=== PATIENT | male | born 1955 | race Caucasian/White ===

== ENCOUNTER 2020-02-07 13:04 | Emergency (ER) | payer OTHER, SELFPAY ==
--- NOTE | 2020-02-07 13:09 | DI.RAD.S_ITS ---
PROCEDURE: XR CHEST 1V INDICATIONS: chest tightness TECHNIQUE: One view of the chest was acquired. COMPARISON: None. FINDINGS: Surgical changes and devices: None. Lungs and pleura: Lungs are clear. No pleural effusions or pneumothorax. Mediastinum: Mediastinal contours appear normal. Heart size is normal. Bones and chest wall: No suspicious bony lesions. Overlying soft tissues appear unremarkable. IMPRESSION: No acute disease Dictated by: Cooper Cristobal M.D. on 02/07/2020 at 13:51 Approved by: Cooper Cristobal M.D. on 02/07/2020 at 14:09
--- NOTE | 2020-02-07 13:20 | ED_ITS ---
HPI - Chest Pain <VAIBHAV Odonnell - Last Filed: 02/08/20 02:33> General Chief Complaint: Chest Pain Stated Complaint: Sent by Doctor, having tightness in his chest Time Seen by Provider: 02/07/20 13:05 Source: patient Mode of arrival: Ambulatory Limitations: no limitations History of Present Illness HPI narrative: This is a 64-year-old male, nonsmoker, to ED with constant mid chest tightness which started at 4:00 p.m. yesterday without associated symptoms. Patient denies dyspnea, short of breath, cough, fever, nausea or vomiting, dizziness. Patient is not currently on anticoagulants or takes aspirin. Patient denies previous similar history with chest tightness. Patient has history of hypertension and takes lisinopril 20 mg and hyperlipidemia and takes Atorvastatin daily. Patient is not familiar ever had echocardiogram or stress test in the past. He denies history of GERD or a significant family history of cardiac disease. Patient states he does carry heavy weight at work. Patient contacted his primary care physician Dr. Swan and was referred to ED for an evaluation. Related Data Allergies Allergy/AdvReac Type Severity Reaction Status Date / Time No Known Drug Allergies Allergy Verified 02/07/20 13:24 Review of Systems <VAIBHAV Odonnell - Last Filed: 02/08/20 02:33> Review of Systems Narrative: General: Denies fever, chills, fatigue, malaise, sweats. HEENT: Denies sinus pain, ear pain, sore throat, difficulty swallowing, dizziness. Respiratory: Denies dyspnea, cough, wheezing, hemoptysis, sputum. Cardiovascular: See HPI Gastrointestinal: Denies nausea, vomiting, abdominal pain, diarrhea, constipation, melena. : Denies dysuria, frequency, incontinence, hematuria, urinary retention. Musculoskeletal: Denies weakness, joint pain or bony pain. Skin: Denies rash, skin lesions, or other. Neurologic: Denies weakness, headache, numbness, change in speech, confusion, seizures, incoordination. Psychiatric: No concerning psychosocial issues. 12-point review of systems is negative except for those stated above. Patient History <VAIBHAV Odonnell - Last Filed: 02/08/20 02:33> Medical History (Updated 02/07/20 @ 16:03 by VAIBHAV Odonnell) Hyperlipidemia (Acute) Hypertension (Acute) Surgical History (Updated 02/07/20 @ 13:24 by VAIBHAV Odonnell) H/O inguinal hernia repair (Acute) Social History Smoking Status: Never smoker Smoking Status: Never smoker alcohol intake frequency: 0-2 drinks per day Substance Use Type: does not use Exam <VAIBHAV Odonnell - Last Filed: 02/08/20 02:33> Narrative Exam Narrative: GEN: Alert, oriented x 3, well appearing and nourished, and in no acute distress. Head: Normal cephalic, atraumatic. No scalp or temporal tenderness, palpable mass or rash. EYES: Pupils are equal, round, and reactive to light and accommodation. Extraocular muscles are intact bilaterally. There is no subconjunctival hemorrhage, exudate and sclera non-icteric. ENT: Bilateral auditory canals and tympanic membranes clear. Hearing grossly intact. Nose without bleeding, purulent discharge or deviation. Facial sinuses nontender to palpate. Mucous membrane moist, no mucosal lesion. Throat without erythema, tonsillar hypertrophy or exudate. Uvula in midline, airway patent. Neck: Trachea in midline. No JVD, non-tender without lymphadenopathy. No masses or thyroid megaly. Supple, non-tender and no meningeal signs. CARDIAC: Normal regular rate and rhythm without murmurs, gallops, or rubs. Mild chest wall tenderness to palpate. No peripheral edema, cyanosis or pallor. Capillary refill is less than 2 seconds. RESPIRATORY: Lungs are clear to auscultate bilaterally. No cough, wheezes, rales, or rhonchi. No stridor, respiratory distress, increase work of breathing, or accessary muscle used. ABD: Abdomen soft, nontender and non-distended. No guarding or rebound tenderness to palpate. Bowel sounds are normal in all 4 quadrants. There is no palpable masses or organomegaly. EXT: Full painless ROM of all extremities with no loss of sensation, strength, effusion or edema. SKIN: Warm, dry, normal color for patient. No erythema, lesions or rash over visible areas. BACK: Nontender without deformity or crepitance. No flank tenderness. NEUROLOGICAL: Alert and oriented to place, time and person. Sensation and motor function intact bilaterally. No facial droops, dysphasia. PSYCHIATRIC: Good judgement and reason, without hallucinations, abnormal affect or abnormal behaviors during the examination. Initial Vital Signs Initial Vital Signs: Vital Signs Temperature 97.7 F 02/07/20 13:24 Pulse Rate 60 02/07/20 13:24 Respiratory Rate 14 02/07/20 13:24 Blood Pressure 196/77 H 02/07/20 13:24 Pulse Oximetry 97 02/07/20 13:24 <Jolly Rodríguez MD - Last Filed: 02/13/20 21:05> Initial Vital Signs Initial Vital Signs: Vital Signs Temperature 97.7 F 02/07/20 13:24 Pulse Rate 60 02/07/20 13:24 Respiratory Rate 14 02/07/20 13:24 Blood Pressure 196/77 H 02/07/20 13:24 Pulse Oximetry 97 02/07/20 13:24 Scores <VAIBHAV Odonnell - Last Filed: 02/08/20 02:33> GCS Lockwood coma scale eye opening: Spontaneous Lockwood coma scale verbal response: Orientated Berna coma scale motor response: Obey commands Berna coma scale total score: 15 HEART Score Heart Score history: Slightly Suspicious Heart Score EKG: Normal Heart Score Age: 45-64 years old Heart Score risk factors: 1-2 risk factors Heart Score troponin: < or = to normal limit Heart Score Total: 2 Course <VAIBHAV Odonnell - Last Filed: 02/08/20 02:33> Orders Ordered: Discontinued Medications Al Hydrox/Mg Hydrox/Simethicone 20 ml/ Lidocaine HCl 15 ml 0 ml PO NOW ONE Stop: 02/07/20 15:50 Last Admin: 02/07/20 15:58 Dose: 35 ml Documented by: AMARILYS Ketorolac Tromethamine (Toradol) 15 mg IV NOW ONE Stop: 02/07/20 14:07 Last Admin: 02/07/20 15:06 Dose: 15 mg Documented by: AMARILYS Vital Signs Vital signs: Vital Signs - 8 hr 02/07/20 13:24 02/07/20 13:57 Temperature 97.7 F Pulse Rate 60 60 Respiratory Rate 14 18 Blood Pressure 196/77 H Blood Pressure [Right Arm] 146/82 H Pulse Oximetry 97 98 <Jolly Rodríguez MD - Last Filed: 02/13/20 21:05> Orders Ordered: Discontinued Medications Al Hydrox/Mg Hydrox/Simethicone 20 ml/ Lidocaine HCl 15 ml 0 ml PO NOW ONE Stop: 02/07/20 15:50 Last Admin: 02/07/20 15:58 Dose: 35 ml Documented by: AMARILYS Ketorolac Tromethamine (Toradol) 15 mg IV NOW ONE Stop: 02/07/20 14:07 Last Admin: 02/07/20 15:06 Dose: 15 mg Documented by: AMARILYS Vital Signs Vital signs: Vital Signs - 8 hr 02/07/20 13:24 02/07/20 13:57 Temperature 97.7 F Pulse Rate 60 60 Respiratory Rate 14 18 Blood Pressure 196/77 H Blood Pressure [Right Arm] 146/82 H Pulse Oximetry 97 98 MDM - Chest Pain <Wing VAIBHAV Dodd - Last Filed: 02/08/20 02:33> Differential Diagnosis Differential diagnosis: Likely atypical chest pain, costochondritis and other (GERD, pneumonia) Medical Records Data Attestation: I reviewed the patient's medical records. Lab Data Attestation: I reviewed the patient's lab results. Result diagrams: 02/07/20 13:15 02/07/20 13:15 Labs: Lab Results 02/07/20 02/07/20 02/07/20 Range/Units 13:15 13:15 13:15 WBC 5.0 (4.5-11.0) X10^3/uL RBC 4.83 (4.5-5.9) X10^6/uL Hgb 14.5 (13.5-17.5) g/dL Hct 41.7 (41-53) % MCV 86.4 (80-100) fL MCH 30.0 (26-34) PG MCHC 34.8 (30-36) % RDW 13.1 (11.6-14.8) % Plt Count 169 (150-400) X10^3/uL Neut % (Auto) 56.9 (50-75) % Lymph % (Auto) 34.2 (25-40) % Vermilion % (Auto) 7.1 (3-14) % Eos % (Auto) 1.0 L (2-4) % Baso % (Auto) 0.8 (0-2) % Neut # (Auto) 2800 (7976-1080) /uL Lymph # (Auto) 1700 (9568-8538) /uL Vermilion # (Auto) 400 (0-900) /uL Eos # (Auto) 0 (0-450) /uL Baso # (Auto) 0 (0-100) /uL PT 10.8 (10.1-12.7) SECONDS INR 0.9 (0.9-1.3) APTT 29 (26.4-36.2) SECONDS Sodium 137 (137-145) mmol/L Potassium 4.1 (3.4-5.1) mmol/L Chloride 104 (98-107) mmol/L Carbon Dioxide 24 (22-32) mmol/L BUN 22 H (9-20) mg/dL Creatinine 0.90 (0.66-1.25) mg/dL Estimated GFR > 60.0 (>60) mL/min BUN/Creatinine Ratio 24.4 H (6-22) Glucose 88 (80-110) mg/dL Calcium 9.3 (8.4-10.2) mg/dL Total Bilirubin 0.6 (0.2-1.3) mg/dL AST 33 (17-59) IU/L ALT 42 (<50) IU/L Alkaline Phosphatase 58 (38-126) U/L Total Creatine Kinase 127 (55-170) U/L CK-MB (CK-2) 0.64 (<2.37) ng/mL CK-MB (CK-2) Rel Index 0.5 L (1.5-5.0) % Troponin I < 0.012 (0.01-0.034) ng/mL Total Protein 7.3 (6.3-8.2) g/dL Albumin 4.7 (3.5-5.0) g/dL Globulin 2.6 (1.7-4.1) g/dL Albumin/Globulin Ratio 1.8 (1.0-2.8) Lipase 56 (23-300) U/L Imaging Data Chest x-ray: Radiologist's Impression: [address] [address] XRay Report Signed Patient: Colin Jacinto#: [id number] : 6Acct:[id number] Age/Sex: 64 / MDate of Service: 02/07/20 Loc: ED Accession Number: [id number] Procedure: XR chest 1V Ordering Provider: Wing Dodd PROCEDURE: XR CHEST 1V INDICATIONS: chest tightness TECHNIQUE: One view of the chest was acquired. COMPARISON: None. FINDINGS: Surgical changes and devices: None. Lungs and pleura: Lungs are clear. No pleural effusions or pneumothorax. Mediastinum: Mediastinal contours appear normal. Heart size is normal. Bones and chest wall: No suspicious bony lesions. Overlying soft tissues a ppear unremarkable. IMPRESSION: No acute disease Dictated by: Cooper Cristobal M.D. on 02/07/2020 at 13:51 Approved by: Cooper Cristobal M.D. on 02/07/2020 at 14:09 ECG Data Attestation: I personally reviewed and interpreted this ECG as follows: Prior ECG tracings: not available for review Interpretation: Normal sinus rhythm rate at 62. P are interval 204, QRS duration 82, QT/QTC 422/[address] ST elevation or depression MDM Narrative Medical decision making narrative: This is a 64-year-old male who has history of hypertension and hyperlipidemia who presents to ED with constant central chest to left side chest pain which started last night at 4:00 p.m. without associated cardiac symptoms or aggravating and relieving factors. Patient was advised to evaluated in ED by PCP. Patient had mild tenderness to palpate in chest wall. Patient denies history of echocardiogram or stress test in the past. EKG shows normal sinus rhythm rate at 62. Blood tests including Cardiac enzymes were unremarkable. Heart score is 2. Chest x-ray shows none acute findings. The patient's chest pain is not likely due to cardiac in origin. Patient was medicated with IV Toradol and GI Cocktail for his symptoms which mildly improved. Patient's heart rate decreased to 50s at rest with normotensive or slightly elevated blood pressure. Patient was concerned for his blood pressure while in ED which was up to 196/72 initially and decreased to 136/85 trending. Patient informed that he should follow up with primary care physician to monitor his blood pressure closely. Findings from today's visit has been shared with the patient and advised to follow up with further cardiac workup. Return precautions were discussed with the patient and patient verbalized understanding and in agreement with treatment plan. <Jolly Rodríguez MD - Last Filed: 02/13/20 21:05> Lab Data Labs: Lab Results 02/07/20 02/07/20 02/07/20 Range/Units 13:15 13:15 13:15 WBC 5.0 (4.5-11.0) X10^3/uL RBC 4.83 (4.5-5.9) X10^6/uL Hgb 14.5 (13.5-17.5) g/dL Hct 41.7 (41-53) % MCV 86.4 (80-100) fL MCH 30.0 (26-34) PG MCHC 34.8 (30-36) % RDW 13.1 (11.6-14.8) % Plt Count 169 (150-400) X10^3/uL Neut % (Auto) 56.9 (50-75) % Lymph % (Auto) 34.2 (25-40) % Vermilion % (Auto) 7.1 (3-14) % Eos % (Auto) 1.0 L (2-4) % Baso % (Auto) 0.8 (0-2) % Neut # (Auto) 2800 (4895-1937) /uL Lymph # (Auto) 1700 (6917-9892) /uL Vermilion # (Auto) 400 (0-900) /uL Eos # (Auto) 0 (0-450) /uL Baso # (Auto) 0 (0-100) /uL PT 10.8 (10.1-12.7) SECONDS INR 0.9 (0.9-1.3) APTT 29 (26.4-36.2) SECONDS Sodium 137 (137-145) mmol/L Potassium 4.1 (3.4-5.1) mmol/L Chloride 104 (98-107) mmol/L Carbon Dioxide 24 (22-32) mmol/L BUN 22 H (9-20) mg/dL Creatinine 0.90 (0.66-1.25) mg/dL Estimated GFR > 60.0 (>60) mL/min BUN/Creatinine Ratio 24.4 H (6-22) Glucose 88 (80-110) mg/dL Calcium 9.3 (8.4-10.2) mg/dL Total Bilirubin 0.6 (0.2-1.3) mg/dL AST 33 (17-59) IU/L ALT 42 (<50) IU/L Alkaline Phosphatase 58 (38-126) U/L Total Creatine Kinase 127 (55-170) U/L CK-MB (CK-2) 0.64 (<2.37) ng/mL CK-MB (CK-2) Rel Index 0.5 L (1.5-5.0) % Troponin I < 0.012 (0.01-0.034) ng/mL Total Protein 7.3 (6.3-8.2) g/dL Albumin 4.7 (3.5-5.0) g/dL Globulin 2.6 (1.7-4.1) g/dL Albumin/Globulin Ratio 1.8 (1.0-2.8) Lipase 56 (23-300) U/L Discharge Plan Departure Patient Disposition: Home Clinical Impression: Atypical chest pain Discharge Date/Time: 02/07/20 16:27 Instructions: DI for Atypical Chest Pain Activity Restrictions/Additional Instructions: You have been diagnosed with [atypical chest pain. EKG, chest x-ray, lab tests are assuring including cardiac enzymes were negative indicating and MD. You were medicated with IV Toradol and GI cocktail. Your symptoms may related to costochondritis or acid reflux]. What to do: *Take your medications as directed. Continue with her medications. You can add [id number] baby aspirin until your re-evaluated with her doctor and discussed whether to continue with this. *Follow up with your primary care provider in 2-3 days, call for an appointment. Let them know you were seen in the ED and that we asked you to be seen in follow up. You may need further workup with stress test or echocardiogram as needed. *Return to ED if you have any new, worsening, or concerning symptoms, such as [chest pain, breathing difficulty, unable to tolerate fluids, dizziness, fever, or any acute concerns]. Referrals: To Swan MD [Primary Care Provider] - <Jolly Rodríguez MD - Last Filed: 02/13/20 21:05> Cosign ED Attending Navi Attestation: I was immediately available in the department for consultation throughout this patient's visit. I agree with documentation as above. Jolly Rodríguez MD
[2020-02-07 13:24] VITALS: BP 196/77; PULSE 60; RESP 14; TEMP 36.5; O2SAT 97; BMI 28.5
[2020-02-07 13:29] LABS: Add Manual Diff / Slide Review NO; Basophils Absolute Auto 0 /uL (0-100); Basophils Percent Auto 0.8 % (0-2); Eosinophils Absolute Auto 0 /uL (0-450); Hematocrit 41.7 % (41-53); Hemoglobin 14.5 g/dL (13.5-17.5); Lymphocytes Absolute Auto 1700 /uL (1100-4500); Lymphocytes Percent Auto 34.2 % (25-40); Mean Corpuscular HGB Conc 34.8 % (30-36); Mean Corpuscular Volume 86.4 fL (80-100); Monocytes Absolute Auto 400 /uL (0-900); Monocytes Percent Auto 7.1 % (3-14); Neutrophils Absolute Auto 2800 /uL (1500-7000); Neutrophils Percent Auto 56.9 % (50-75); Platelet Count 169 X10^3/uL (150-400); Red Blood Cell Count 4.83 X10^6/uL (4.5-5.9); Red Cell Distribution Width 13.1 % (11.6-14.8)
[2020-02-07 13:40] LABS: INR 0.9 (0.9-1.3); Prothrombin Time 10.8 SECONDS (10.1-12.7)
[2020-02-07 13:42] LABS: PTT Partial Thromboplastin Tim 29 SECONDS (26.4-36.2)
[2020-02-07 13:44] LABS: Alanine Aminotransferase 42 IU/L (<50); Albumin 4.7 g/dL (3.5-5.0); Albumin Globulin Ratio 1.8 (1.0-2.8); Alkaline Phosphatase 58 U/L (38-126); Aspartate Aminotransferase 33 IU/L (17-59); BUN Creatinine Ratio 24.4 (6-22); Bilirubin Total 0.6 mg/dL (0.2-1.3); Blood Urea Nitrogen 22 mg/dL (9-20); Calcium 9.3 mg/dL (8.4-10.2); Carbon Dioxide 24 mmol/L (22-32); Chloride 104 mmol/L (98-107); Creatine Kinase 127 U/L (55-170); Estimated Glomerular Filt Rate > 60.0 mL/min (>60); Globulin 2.6 g/dL (1.7-4.1); Glucose 88 mg/dL (80-110); HEMOLYSIS < 15 (0-50); Lipase 56 U/L (23-300); Potassium 4.1 mmol/L (3.4-5.1); Sodium 137 mmol/L (137-145); Total Protein 7.3 g/dL (6.3-8.2)
[2020-02-07 13:56] LABS: Troponin I < 0.012 ng/mL (0.01-0.034)
[2020-02-07 13:57] VITALS: BP 146/82; PULSE 60; RESP 18; O2SAT 98
[2020-02-07 13:59] LABS: CKMB % Relative Index 0.5 % (1.5-5.0); Creatine Kinase MB 0.64 ng/mL (<2.37)
[2020-02-07 14:32] VITALS: BP 136/85; PULSE 54; RESP 12; O2SAT 95
[2020-02-07] MEDS: KETOROLAC 60 MG/2 ML VIAL 15 MG IV (15:06)
[2020-02-07] MEDS: MAG HYDROX/ALUMINUM/SIMETH SUS 20 ML, LIDOCAINE VISCOUS 2% 15 ML PO (15:58)
[2020-02-07 16:24] VITALS: BP 170/91; PULSE 60; RESP 16; O2SAT 97
== END 2020-02-07 16:27 | disposition home or self-care (01) ==
PROVIDERS: Emergency Provider Nurse Practitioner Family; PCP Family Medicine
DX: R07.89 Other chest pain (principal); I10 Essential (primary) hypertension; E78.5 Hyperlipidemia, unspecified
CPT/HCPCS: 36415; 71045; 80053; 82550; 82553; 83690; 84484; 85025; 85610; 85730; 93005; 96374; 99284; J1885